=== PATIENT | female | born 1975 | race Two or more races ===

== ENCOUNTER → 2019-10-25 | Emergency (ER) | payer OTHER ==
[~2019-10-25] MED LIST: BENADRYL50 MG PO; CIPRO750 MG PO; PREDNISONE5 MG/DOSE- PO; TRAMADOL HCL50 MG PO
== END | disposition left against medical advice (07) ==
LOC: ER 05:51
DX: Z53.21 Procedure and treatment not carried out due to patient leaving prior to being seen by health care provider (principal)